=== PATIENT | female | born 1960 | race Caucasian/White ===

== ENCOUNTER 2018-07-29 15:13 | Emergency (ER) | payer OTHER ==
[2018-07-29] MEDS ORDERED: Adacel (T-DAP) 0.5 ML SYRINGE ONE (15:53)
== END 2018-07-29 16:23 | disposition home or self-care (01) ==
LOC: BURERS 15:13
DX: S41.122A Laceration with foreign body of left upper arm, initial encounter (principal); F41.9 Anxiety disorder, unspecified; Z79.899 Other long term (current) drug therapy; V40.6XXA Car passenger injured in collision with pedestrian or animal in traffic accident, initial encounter
CPT/HCPCS: 90471; 90715